=== PATIENT | female | born 1990 | race Hispanic/Latino ===

== ENCOUNTER 2019-01-13 17:03 | Emergency (ER) | payer OTHER ==
[2019-01-13 17:11] VITALS: BP 134/77; PULSE 73; RESP 16; TEMP 98.4; O2SAT 100
[2019-01-13] MEDS ORDERED: Naproxen 500 MG TAB PO STA (17:26)
--- NOTE | 2019-01-13 18:02 | ED PDOC ---
HPI: Headache Time Seen by Provider: 01/13/19 17:15 Chief Complaint (Nursing): Headache Chief Complaint (Provider): Headache History Per: Patient History/Exam Limitations: no limitations Onset/Duration Of Symptoms: Days Current Symptoms Are (Timing): Still Present Additional Complaint(s): 28 y/o female with no significant PMHx presents to the ED for evaluation of pain to the posterior head and feeling of fogginess for the past two days. Patient reports that two days ago, she was sitting in a chair when she leaned back quickly, hitting her head against the countertop. Patient denies loss of consciousness, vomiting and blurry vision. Patient notes of initially having stunned. Patient reports that yesterday she felt like it was taking her longer to think or speak. Patient states symptoms have improved today but came in for evaluation because symptoms continued. PMD: no provider Past Medical History Reviewed: Historical Data, Nursing Documentation, Vital Signs Vital Signs: Last Vital Signs Temp 98.4 F 01/13/19 17:11 Pulse 73 01/13/19 17:11 Resp 16 01/13/19 17:11 BP 134/77 01/13/19 17:11 Pulse Ox 100 01/13/19 17:11 Primary Care Provider: Non [facility] Provider, - Medical History PMH: No Chronic Diseases - Surgical History Surgical History: No Surg Hx - Family History Family History: States: Unknown Family Hx - Home Medications Home Medications: Ambulatory Orders Medication Instructions Recorded Naproxen 500 mg PO BID PRN #20 tab 04/26/15 - Allergies Allergies/Adverse Reactions: Allergies Allergy/AdvReac Type Severity Reaction Status Date / Time Penicillins Allergy PAIN Verified 01/13/19 17:10 Augmentin Allergy RASH Uncoded 01/13/19 17:10 Shellfish Allergy RASH Uncoded 01/13/19 17:11 Review of Systems ROS Statement: Except As Marked, All Systems Reviewed And Found Negative Eyes: Negative for: Vision Change Gastrointestinal: Negative for: Vomiting Musculoskeletal: Positive for: Other (pain to the posterior head ) Neurological: Positive for: Other (feeling of fogginess) Physical Exam - Reviewed Nursing Documentation Reviewed: Yes Vital Signs Reviewed: Yes - Physical Exam Appears: Positive for: No Acute Distress Head Exam: Positive for: NORMAL INSPECTION (No visible palpable trauma to scalp. ) Skin: Positive for: Normal Color, Warm, Dry Eye Exam: Positive for: Normal appearance, EOMI, PERRL Neck: Positive for: Normal (No tenderness to palpation of the spine) Cardiovascular/Chest: Positive for: Regular Rate, Rhythm. Negative for: Murmur Respiratory: Positive for: Normal Breath Sounds. Negative for: Respiratory Distress Gastrointestinal/Abdominal: Positive for: Normal Exam, Soft. Negative for: Tenderness Extremity: Positive for: Normal ROM. 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 ). Negative for: Motor/Sensory Deficits - ECG O2 Sat by Pulse Oximetry: 100 (RA) Pulse Ox Interpretation: Normal Medical Decision Making Medical Decision Making: Time: 1725 A/P: Post concussive syndrome, improving -- No indication for CT needed at this time. Time: 1758 -- On re-evaluation, headache has improved with Reglan and Naproxen. -- Conservative management discussed with patient. -- Patient given referral to neurologist if symptoms continue. Patient instructed to follow up with PMD. ---- Scribe Attestation: Documented by Howard Gan, acting as a scribe Jered Serna MD. Provider Scribe Attestation: All medical record entries made by the Scribe were at my direction and personally dictated by me. I have reviewed the chart and agree that the record accurately reflects my personal performance of the history, physical exam, medical decision making, and the department course for this patient. I have also personally directed, reviewed, and agree with the discharge instructions and disposition. Disposition - Clinical Impression Clinical Impression: Headache, Concussion - Disposition Disposition: Routine/Home Disposition Time: 17:59 Condition: STABLE Additional Instructions: Follow up with primary medical doctor. Follow up with neurologist if symptoms (dizziness, confusion, headache etc) continue for more than 48 hours. Return to the emergency department if symptoms worsen. Take Motrin or Tylenol for headache. Instructions: Concussion, Adult (DC), Head Injury Observation (DC) Forms: [facility] (Pashto), [facility] ED School/Work Excuse
== END 2019-01-13 18:01 | disposition home or self-care (01) ==
LOC: H.ER 17:03
DX: S06.0X0A Concussion without loss of consciousness, initial encounter (principal); W19.XXXA Unspecified fall, initial encounter; Y92.89 Other specified places as the place of occurrence of the external cause